=== PATIENT | female | born 1970 | race Caucasian/White ===

== ENCOUNTER 2025-01-09 10:45 | Emergency (ER) | payer MEDICARE, SELFPAY ==
[2025-01-09 10:47] VITALS: BP 146/87; PULSE 68; RESP 18; TEMP 36.5; O2SAT 99; BMI 27.1
--- NOTE | 2025-01-09 11:21 | EX.ED.DYSGE1 ---
HPI <MARIA Farrell - Last Filed: 01/09/25 15:19> History of Present Illness Chief Complaint: Edema Narrative Narrative: 54-year-old female states she had a sinus infection 1 month ago and completed an antibiotic. She still had some allergy type symptoms and nasal drainage. She woke up this morning with a painful swollen lump in front of her right ear and redness on her right cheek. No fever or chills. No eye pain or drainage. No sore throat or dental pain. PFSH <MARIA Farrell - Last Filed: 01/09/25 15:19> [facility] Medical History (Updated 01/09/25 @ 15:12 by MARIA Farrell) Overactive bladder Arthritis Fibromyalgia Pacemaker Arrhythmia HTN (hypertension) Home Medications ?Medication ?Instructions ?Recorded ?Last Taken ?Type amoxicillin 875 mg-potassium 1 tab PO BID 7 days #14 tabs 01/09/25 Unknown Rx clavulanate 125 mg tablet aspirin 81 mg tablet 81 mg PO DAILY 01/09/25 01/08/25 History carvedilol 6.25 mg tablet 6.25 mg PO DAILY 01/09/25 01/09/25 History cetirizine 10 mg capsule (All Day 10 mg PO DAILY 01/09/25 01/08/25 History Allergy (cetirizine)) famotidine 40 mg tablet 40 mg PO DAILY 01/09/25 01/09/25 History gabapentin 300 mg capsule 600 mg PO Q8H 01/09/25 01/09/25 History lisinopril 20 mg tablet 20 mg PO DAILY 01/09/25 01/09/25 History melatonin 10 mg capsule 10 mg PO QHS 01/09/25 01/08/25 History mirtazapine 30 mg tablet 30 mg PO QHS 01/09/25 01/08/25 History montelukast 10 mg tablet 10 mg PO DAILY 01/09/25 01/08/25 History multivitamin (Daily Multi-Vitamin 1 tab PO DAILY 01/09/25 01/09/25 History tablet) oxybutynin chloride 5 mg tablet 5 mg PO BID 01/09/25 01/09/25 History sertraline 100 mg tablet 150 mg PO DAILY 01/09/25 01/09/25 History topiramate 50 mg tablet 50 mg PO BID 01/09/25 01/09/25 History trazodone 50 mg tablet 50 mg PO QHS 01/09/25 01/08/25 History Allergy/AdvReac Type Severity Reaction Status Date / Time hydrochlorothiazide AdvReac Mild DIZZINESS Verified 01/09/25 10:47 Social History Smoking Status: Never smoker ROS <MARIA Farrell - Last Filed: 01/09/25 15:19> ROS ED ROS Narrative Constitutional: Negative for fever, chills, malaise. ENT: Positive for rhinorrhea. Respiratory: Negative for shortness of breath, cough. GI: Negative for nausea, vomiting. Neuro: Negative for headache. EXAM <MARIA Farrell - Last Filed: 01/09/25 15:19> Physical Exam Narrative Exam Narrative: CONST: Patient sitting in no acute distress. EYES: Normal inspection. ENT: Tender enlarged gland in front of right auricle. Right lateral nose medial cheek erythematous and warm. External ears appear normal, right partial cerumen impaction, bilaterally no TM redness or bulging. Normal nontender mastoids. Nares clear, normal posterior oropharynx. No dental pain or periapical abscess, sublingual space is soft. NECK: Normal inspection. Trachea midline, no masses or lymphadenopathy. RESP: No respiratory distress, CTAB. CVS: Regular rate and rhythm, no murmur, no gallop. SKIN: Clean dry and intact. EXTREMITIES: Normal appearance, no pedal edema. NEURO: Alert and answering questions appropriately. PSYCH: Normal affect. Const Vital Signs: 01/09/25 10:47 01/09/25 11:17 01/09/25 12:46 Temperature 97.7 F L Temperature Source Oral Pulse Rate 68 66 Respiratory Rate 18 16 Respiratory Effort Normal Non-Labored Respiratory Pattern Normal Blood Pressure 146/87 H 154/70 H Blood Pressure Mean 106 98 Pulse Ox 99 97 Oxygen Delivery Method Room Air Room Air 01/09/25 14:00 01/09/25 15:17 Temperature 97.7 F L Temperature Source Pulse Rate 59 L 61 Respiratory Rate 16 Respiratory Effort Respiratory Pattern Blood Pressure 169/75 H 151/60 H Blood Pressure Mean 106 90 Pulse Ox 96 98 Oxygen Delivery Method Room Air <Dr. Boris Haney DO - Last Filed: 01/09/25 15:47> Physical Exam Const Vital Signs: 01/09/25 10:47 01/09/25 11:17 01/09/25 12:46 Temperature 97.7 F L Temperature Source Oral Pulse Rate 68 66 Respiratory Rate 18 16 Respiratory Effort Normal Non-Labored Respiratory Pattern Normal Blood Pressure 146/87 H 154/70 H Blood Pressure Mean 106 98 Pulse Ox 99 97 Oxygen Delivery Method Room Air Room Air 01/09/25 14:00 01/09/25 15:17 Temperature 97.7 F L Temperature Source Pulse Rate 59 L 61 Respiratory Rate 16 Respiratory Effort Respiratory Pattern Blood Pressure 169/75 H 151/60 H Blood Pressure Mean 106 90 Pulse Ox 96 98 Oxygen Delivery Method Room Air MDM <MARIA Farrell - Last Filed: 01/09/25 15:19> [facility] Narrative Medical decision making narrative: Differential includes but not limited to parotitis, abscess, neoplasm Patient has erythema on the right cheek consistent with cellulitis and enlargement of the right parotid gland. Her mastoids and external and internal ears appear normal. No evidence of dental infection. CBC and BMP are normal. CT of the facial/sinuses shows enlargement of the right parotid with adjacent fat stranding consistent with parotitis. States some of the neoplastic process cannot be completely excluded. I will place the patient on Augmentin, recommended NSAIDs, and provided ENT follow-up. She was discharged in stable condition. Lab Data Attestation: I reviewed the patient's lab results. Labs: Laboratory Results - last 24 hr 01/09/25 11:34 WBC 6.8 RBC 4.33 Hgb 13.3 Hct 39.1 MCV 90.3 MCH 30.7 MCHC 34.0 RDW Std Deviation 42.2 RDW Coeff of Chen 12.7 Plt Count 226 MPV 9.5 Immature Gran % (Auto) 0.100 Neut % (Auto) 60.7 Lymph % (Auto) 24.7 Morgan % (Auto) 8.2 Eos % (Auto) 6.0 H Baso % (Auto) 0.3 Absolute Neuts (auto) 4.2 Absolute Lymphs (auto) 1.69 Nucleated RBC % 0 Sodium 141 Potassium 3.6 Chloride 107 Carbon Dioxide 23.1 Anion Gap 11 BUN 18 Creatinine 0.95 Estim Creat Clear Calc 63.27 Est GFR (MDRD) Non-Af 71 BUN/Creatinine Ratio 18.8 Glucose 99 Calcium 8.9 Radiography Diagnostic Testing: Clinical Impression(s) from Imaging Studies Facial/Sinus 01/09/25 11:26 IMPRESSION: Mild enlargement of the right parotid with mild adjacent fat stranding and internal soft tissue nodules possibly representing lymph nodes which may represent parotitis. Another neoplastic process can not be completely excluded. Borderline enlarged bilateral cervical lymph nodes. Mild thickening of the soft tissues of the external ear which may represent otitis externa. Correlate with physical exam. Reading Location: [id number] <Dr. Boris Haney, DO - Last Filed: 01/09/25 15:47> [facility] MDM Narrative Medical decision making narrative: Differential includes but not limited to parotitis, abscess, neoplasm Patient has erythema on the right cheek consistent with cellulitis and enlargement of the right parotid gland. Her mastoids and external and internal ears appear normal. No evidence of dental infection. CBC and BMP are normal. CT of the facial/sinuses shows enlargement of the right parotid with adjacent fat stranding consistent with parotitis. States some of the neoplastic process cannot be completely excluded. I will place the patient on Augmentin, recommended NSAIDs, and provided ENT follow-up. She was discharged in stable condition. Supervisory Physician Note Patient was seen and examined with the Advanced Practice Provider. Nursing notes and vital signs have been reviewed. Pertinent old records have been reviewed. I agree with the essential elements of the LIANA's history, physical exam, assessment, and plan. The differential diagnosis and management options were discussed with the LIANA. I participated in determining and agree with the management, procedures, final impression and disposition as documented. See changes noted by me. Please see addendum or separate note for any additional details. 54-year-old female presents for evaluation of sinus pressure with right sided facial swelling. Patient states she has been having issues with her sinuses and allergies. States approximately 1 month ago she was treated for a sinus infection. She states she has continued to have congestion with clear nasal drainage. Today she developed a painful lump in front of her right ear with redness/mild swelling of the right cheek. She denies any fever, chills, headache, vision changes, sinus pressure, ear or eye drainage, tinnitus, hearing loss, nausea, vomiting, sore throat, dental pain, chest pain, shortness of breath, cough. Eating and drinking well. No neck pain or difficulty swallowing. Denies any neurological deficit. Gen: A&O x3, NAD Head: Normocephalic, atraumatic Eyes: No sclera icterus, conjunctiva clear, PERRL, EOMI ENT: EACs and TMs clear BL, moist mucous membranes, posterior oropharynx unremarkable, uvula midline, tonsils not enlarged, no tonsillar exudates, no dental infection, no Chauncey angina/submandibular swelling, patient has mild erythema/swelling over right maxillary sinus-mild tenderness to palpation, tenderness/enlargement of the right parotid gland without erythema, no mastoiditis Neck: Trachea midline, No JVD, Full ROM, No meningismus, no lymphadenopathy CV: RRR, no murmurs Resp: Lungs CTA BL, no w/r/c Musc: Full ROM, no deformity Skin: Warm, dry Neuro: Alert, oriented, grossly intact, sensation intact Psych: Cooperative, appropriate mood and affect Differential diagnosis includes but is not limited to sinus infection, parotitis, cellulitis, facial abscess. On presentation, patient is no acute distress. Vitals are stable. She is afebrile. Toradol ordered for pain. Basic labs ordered with CT of the face. CBC without leukocytosis or anemia. BMP unremarkable. Patient had prolonged stay in the emergency department secondary to radiology not reading the CT imaging. We contacted radiology multiple times to have someone read the imaging. This was finally completed. CT shows mild enlargement of the right parotid with mild adjacent fat stranding and internal soft tissue nodules possibly representing lymph nodes which may represent parotitis. Another neoplastic process cannot be completely excluded. Borderline enlarged bilateral cervical lymph nodes. Mild thickening of the soft tissues of the external ear which may represent otitis externa. Physical exam does not correspond with otitis externa. On reevaluation, patient's pain has improved with Toradol. Patient will be placed on Augmentin for parotitis. Follow-up with ENT. Patient confirmed understand the plan. Patient stable to discharge home. Lab Data Labs: Laboratory Results - last 24 hr 01/09/25 11:34 WBC 6.8 RBC 4.33 Hgb 13.3 Hct 39.1 MCV 90.3 MCH 30.7 MCHC 34.0 RDW Std Deviation 42.2 RDW Coeff of Chen 12.7 Plt Count 226 MPV 9.5 Immature Gran % (Auto) 0.100 Neut % (Auto) 60.7 Lymph % (Auto) 24.7 Morgan % (Auto) 8.2 Eos % (Auto) 6.0 H Baso % (Auto) 0.3 Absolute Neuts (auto) 4.2 Absolute Lymphs (auto) 1.69 Nucleated RBC % 0 Sodium 141 Potassium 3.6 Chloride 107 Carbon Dioxide 23.1 Anion Gap 11 BUN 18 Creatinine 0.95 Estim Creat Clear Calc 63.27 Est GFR (MDRD) Non-Af 71 BUN/Creatinine Ratio 18.8 Glucose 99 Calcium 8.9 Radiography Diagnostic Testing: Clinical Impression(s) from Imaging Studies Facial/Sinus 01/09/25 11:26 IMPRESSION: Mild enlargement of the right parotid with mild adjacent fat stranding and internal soft tissue nodules possibly representing lymph nodes which may represent parotitis. Another neoplastic process can not be completely excluded. Borderline enlarged bilateral cervical lymph nodes. Mild thickening of the soft tissues of the external ear which may represent otitis externa. Correlate with physical exam. Reading Location: [place] [id number] Discharge Plan Triage Chief Complaint: Edema ED Midlevel Provider: Nathalia Logan ED Provider: Boris Haney Dx/Rx/DC Orders Clinical Impression: Acute parotitis, Cellulitis of face Instructions: ED Salivary Gland Infection Prescriptions: New amoxicillin-pot clavulanate 875-125 mg tablet 1 tab PO BID 7 Days Qty: 14 0RF No Action carvedilol 6.25 mg tablet 6.25 mg PO DAILY trazodone 50 mg tablet 50 mg PO QHS lisinopril 20 mg tablet 20 mg PO DAILY famotidine 40 mg tablet 40 mg PO DAILY sertraline 100 mg tablet 150 mg PO DAILY mirtazapine 30 mg tablet 30 mg PO QHS montelukast 10 mg tablet 10 mg PO DAILY oxybutynin chloride 5 mg tablet 5 mg PO BID topiramate 50 mg tablet 50 mg PO BID gabapentin 300 mg capsule 600 mg PO Q8H multivitamin [Daily Multi-Vitamin] Tablet 1 tab PO DAILY aspirin 81 mg tablet 81 mg PO DAILY All Day Allergy (cetirizine) 10 mg capsule 10 mg PO DAILY melatonin 10 mg capsule 10 mg PO QHS Primary Care Provider: Shasta Valero Referrals: Joseph Aguirre MD [Med Staff - Courtesy Staff] - Shasta Valero MD [Primary Care Provider] - Activity Restrictions/Additional Instructions: The CAT scan shows you have inflammation of the parotid gland which is called parotitis. This is one of the saliva glands. Please take the antibiotic, Tylenol and Motrin as needed for pain, and follow-up with the ENT. Print Language: Bangladeshi Disposition Disposition: Home, Self Care Discharge Date/Time: 01/09/25 15:21
--- NOTE | 2025-01-09 11:26 | CT_ITS ---
PROCEDURE: SINUS/FACIAL BONE WITH CONTRAS REASON FOR EXAM: MASS TECHNIQUE: CT of the paranasal sinuses with contrast. Coronal and Sagittal reconstruction series were provided. One or more dose reduction techniques were used (e.g., Automated exposure control, adjustment of the mA and/or kV according to patient size, use of iterative reconstruction technique). RADIATION DOSE SUMMARY: CTDlvol: 29.38 mGy DLP: 650.30 mGycm COMPARISON: None. FINDINGS: Frontal: Clear. Ethmoid: Clear. Sphenoid: Clear. Maxillary: Clear. Turbinates: Normal. Nasal Septum: Unremarkable. Mastoids/Middle Ears: No mastoid effusion. Mild enlargement of the right parotid with suggestive of mild fat stranding adjacent to the right parotid. Sijpy-nfdvyiy-zhwk-left internal soft tissue nodules which may represent lymph nodes. Mild thickening of the soft tissues of the right ear which may represent otitis externa. Borderline enlarged bilateral cervical lymph nodes. CT/Sinus/Facial Bone WITH Contras IMPRESSION: Mild enlargement of the right parotid with mild adjacent fat stranding and inte rnal soft tissue nodules possibly representing lymph nodes which may represent parotitis. Another neoplastic process can not be completely excluded. Borderline enlarged bilateral cervical lymph nodes. Mild thickening of the soft tissues of the external ear which may represent mile tis externa. Correlate with physical exam. Reading Location: [place] [id number]
[2025-01-09 11:41] LABS: Absolute Lymphocyte Count 1.69 X10^3/uL (0.83-4.51); Absolute Neutrophil Count 4.2 X10^3/uL (2.0-7.7); Basophil# 0.02 X10^3/uL; Basophil% 0.3 % (0-1); Eosinophil# 0.41 X10^3/uL; Hematocrit 39.1 % (37-47); Hemoglobin 13.3 g/dL (12.0-15.0); Lymphocyte # 1.69 X10^3/ul (0.83-4.51); Lymphocyte % 24.7 % (19-41); Mean Corpuscular Hgb 30.7 pg (27.0-32.0); Mean Corpuscular Volume 90.3 fL (81-99); Mean Platelet Vol. 9.5 fl (6.2-12.0); Monocyte# 0.56 X10^3/uL; Monocyte% 8.2 % (0-10); NRBC Flagged by Analyzer 0 % (0-5); Neutrophil # 4.15 X10^3/uL (2.7-7.7); Neutrophil % 60.7 % (47-70); Platelet Count 226 K/mm3 (150-450); RBC Distribution Width CV 12.7 % (11.6-14.6); RBC Distribution Width SD 42.2 fl (35.1-43.9); Red Blood Count 4.33 M/mm3 (4.2-5.4); White Blood Count 6.8 K/mm3 (4.4-11.0)
[2025-01-09] MEDS: Ketorolac 15 MG/ML Vial IV (11:48)
[2025-01-09 12:22] LABS: Anion Gap 11 (5-15); BUN 18 mg/dL (4-19); BUN/Creat Ratio 18.8 RATIO (10-20); Calcium,Total 8.9 mg/dL (7.6-11.0); Carbon Dioxide 23.1 mmol/L (21.0-32.0); Chloride 107 mmol/L (98-108); Creatinine, Serum 0.95 mg/dL (0.70-1.20); EST Glomerular Filtration Rate 71 (>60); Estimated Creatinine Clearance 63.27 ml/min (50-250); Glucose 99 mg/dL (70-99); Potassium 3.6 mmol/L (3.3-5.1); Sodium Level 141 mmol/L (133-145)
[2025-01-09 12:46] VITALS: BP 154/70; PULSE 66; RESP 16; O2SAT 97
--- NOTE | 2025-01-09 13:10 | ED.RN ---
RADIOLOGY CALLED FOR OUTSTANDING CT SCAN. RESPONSE, I WILL CALL THEM.
[2025-01-09 14:00] VITALS: BP 169/75; PULSE 59; O2SAT 96
[2025-01-09] MEDS: Amox/Clavulanate 875 MG Tablet PO (15:16)
[2025-01-09 15:17] VITALS: BP 151/60; PULSE 61; RESP 16; TEMP 36.5; O2SAT 98
== END 2025-01-09 15:21 | disposition home or self-care (01) ==
PROVIDERS: Physician Assistant; Emergency Provider Surgery; PCP Family Medicine; Visit Provider Surgery
DX: K11.21 Acute sialoadenitis (principal); L03.211 Cellulitis of face; I10 Essential (primary) hypertension; Z79.82 Long term (current) use of aspirin; Z79.899 Other long term (current) drug therapy
CPT/HCPCS: 70487; 80048; 85025; 96374; 99283; Q9967; A4216

== ENCOUNTER 2025-04-23 15:09 | Emergency (ER) | payer MEDICARE, MEDICAID, SELFPAY ==
[2025-04-23 15:10] VITALS: BP 184/106; PULSE 78; RESP 18; TEMP 36.9; O2SAT 99; BMI 27.4
--- NOTE | 2025-04-23 16:02 | EX.ED.DYSGE1 ---
HPI History of Present Illness Chief Complaint: Palpitations Informant: patient Onset/Context/Timing Onset: Days Context: Gradual Onset Timing: Intermittent Quality: Racing Location: Chest Worsened by: Stress Relieved by: Nothing Narrative Narrative: Patient presents with palpitations that have been intermittent over the past couple days. Patient states that come on gradually. Patient states it feels like her heart is racing. Patient states it is worse with stress. Patient does nothing to help with it. Patient denies any chest pain. Patient admits to some shortness of breath at times. Patient admits to some pain in her neck and back. Patient noted some weakness in her left lower face. 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 Patient states this has been stable. [facility] Medical History (Updated 04/23/25 @ 20:[address] Jerson Aguirre, DO) Overactive bladder Arthritis Fibromyalgia Pacemaker Arrhythmia HTN (hypertension) Home Medications ?Medication ?Instructions ?Recorded ?Last Taken ?Type amoxicillin 875 mg-potassium 1 tab PO BID 7 days #14 tabs 01/09/25 Unknown Rx clavulanate 125 mg tablet aspirin 81 mg tablet 81 mg PO DAILY 01/09/25 01/08/25 History carvedilol 6.25 mg tablet 6.25 mg PO DAILY 01/09/25 01/09/25 History cetirizine 10 mg capsule (All Day 10 mg PO DAILY 01/09/25 01/08/25 History Allergy (cetirizine)) famotidine 40 mg tablet 40 mg PO DAILY 01/09/25 01/09/25 History gabapentin 300 mg capsule 600 mg PO Q8H 01/09/25 01/09/25 History lisinopril 20 mg tablet 20 mg PO DAILY 01/09/25 01/09/25 History melatonin 10 mg capsule 10 mg PO QHS 01/09/25 01/08/25 History mirtazapine 30 mg tablet 30 mg PO QHS 01/09/25 01/08/25 History montelukast 10 mg tablet 10 mg PO DAILY 01/09/25 01/08/25 History multivitamin (Daily Multi-Vitamin 1 tab PO DAILY 01/09/25 01/09/25 History tablet) oxybutynin chloride 5 mg tablet 5 mg PO BID 01/09/25 01/09/25 History sertraline 100 mg tablet 150 mg PO DAILY 01/09/25 01/09/25 History topiramate 50 mg tablet 50 mg PO BID 01/09/25 01/09/25 History trazodone 50 mg tablet 50 mg PO QHS 01/09/25 01/08/25 History Allergy/AdvReac Type Severity Reaction Status Date / Time hydrochlorothiazide AdvReac Mild DIZZINESS Verified 04/23/25 15:10 Surgical History (Updated 04/23/25 @ 16:[address] Jerson Aguirre DO) History of permanent cardiac pacemaker placement History of throat surgery History of hysterectomy Hx of cholecystectomy Social History Smoking Status: Never smoker ROS ROS ED Constitutional Constitutional ED: Denies chills or fever(s) Eyes Eyes: Denies blurry vision or change in vision ENT ENT ED: Denies rhinorrhea or sore throat Cardiovascular Cardiovascular: Reports palpitations; Denies chest pain Respiratory/Chest Respiratory/Chest: Reports dyspnea; Denies cough Gastrointestinal Gastrointestinal: Denies nausea or vomiting Genitourinary Genitourinary ED: Denies dysuria or hematuria Musculoskeletal Musculoskeletal: Reports back pain and neck pain Integumentary Denies abscess or rash Neurologic Neurologic: Reports weakness; Denies headache(s) Allergic/Immunologic Allergic/Immunologic ED: Denies mouth swelling or urticaria EXAM Physical Exam Const Vital Signs: 04/23/25 15:10 04/23/25 15:28 04/23/25 17:10 Temperature 98.4 F Temperature Source Temporal Pulse Rate 78 70 Pulse Rate [Lying] Pulse Rate [Sitting (for 1 minute prior to obtaining)] Pulse Rate [Standing (for 1 minute prior to obtaining)] Respiratory Rate 18 18 Respiratory Effort Normal Non-Labored Blood Pressure 184/106 H 121/84 H Blood Pressure [Lying] Blood Pressure [Sitting (for 1 minute prior to obtaining)] Blood Pressure [Standing (for 1 minute prior to obtaining)] Blood Pressure Mean 132 96 Blood Pressure Mean [Lying] Blood Pressure Mean [Sitting (for 1 minute prior to obtaining)] Blood Pressure Mean [Standing (for 1 minute prior to obtaining)] Pulse Ox 99 99 Oxygen Delivery Method Room Air Room Air 04/23/25 19:06 Temperature Temperature Source Pulse Rate Pulse Rate [Lying] 68 Pulse Rate [Sitting (for 1 minute prior to obtaining)] 65 Pulse Rate [Standing (for 1 minute prior to obtaining)] 77 Respiratory Rate Respiratory Effort Blood Pressure Blood Pressure [Lying] 192/82 H Blood Pressure [Sitting (for 1 minute prior to obtaining)] 194/102 H Blood Pressure [Standing (for 1 minute prior to obtaining)] 183/93 H Blood Pressure Mean Blood Pressure Mean [Lying] 118 Blood Pressure Mean [Sitting (for 1 minute prior to obtaining)] 132 Blood Pressure Mean [Standing (for 1 minute prior to obtaining)] 123 Pulse Ox Oxygen Delivery Method Positive well nourished and well developed General Appearance ED: well developed and NAD HEENT Reports moist mucous membranes Neck supple and no JVD Resp normal respiratory effort and clear to auscultation bilaterally Cardio regular rate and regular rhythm GI non-tender and non-distended Palpation: soft Extremity normal to inspection General Extremety ED: Negative for edema or tenderness General Extremity: Negative for edema Neuro oriented x3, CN's II-XII intact bilaterally and no sensory deficits noted MDM MDM MDM Narrative Medical decision making narrative: Differential diagnosis includes cardiac dysrhythmia, cardiac ischemia, pneumonia, bronchitis, electrolyte abnormality, and anxiety. EKG will be obtained to assess for cardiac dysrhythmia and cardiac ischemia. Chest x-ray will be obtained to assess for pneumonia and bronchitis. Basic metabolic profile will be obtained to assess for electrolyte abnormality and renal function. CBC will be obtained to assess for leukocytosis and anemia. Urinalysis will be obtained to assess for urinary tract infection and hematuria. High-sensitivity troponin will be obtained to assess for cardiac ischemia. Lab Data Attestation: I reviewed the patient's lab results. Lab results narrative: CBC was reviewed and was within normal limits. Basic metabolic profile was reviewed and was within normal limits. Initial high-sensitivity troponin was repeated and was normal at 7. 2-hour repeat high-sensitivity troponin was reviewed and was normal at 9. Urinalysis was reviewed. There is no evidence of urinary tract infection or hematuria. Labs: Laboratory Results - last 24 hr 04/23/25 04/23/25 04/23/25 16:55 17:30 19:00 WBC 6.2 RBC 4.12 L Hgb 12.4 Hct 35.9 L MCV 87.1 MCH 30.1 MCHC 34.5 RDW Std Deviation 38.5 RDW Coeff of Chen 12.1 Plt Count 252 MPV 9.4 Immature Gran % (Auto) 0.300 Neut % (Auto) 50.6 Lymph % (Auto) 36.9 Boyd % (Auto) 9.0 Eos % (Auto) 2.9 Baso % (Auto) 0.3 Absolute Neuts (auto) 3.2 Absolute Lymphs (auto) 2.30 Nucleated RBC % 0 Sodium 142 Potassium 3.4 Chloride 107 Carbon Dioxide 21.4 Anion Gap 13 BUN 21 H Creatinine 0.82 Estim Creat Clear Calc 73.72 Est GFR (MDRD) Non-Af 85 BUN/Creatinine Ratio 25.3 H Glucose 98 Calcium 9.1 Troponin T High Sens 7 Troponin T Hi Sens 2 Hr 9 Urine Color Yellow Urine Clarity Sl. Cloudy Urine pH 5.0 Ur Specific Randolph 1.025 Urine Protein 30 H Urine Glucose (UA) Normal Urine Ketones Negative Urine Occult Blood Negative Urine Nitrite Negative Urine Bilirubin Negative Urine Urobilinogen Normal Ur Leukocyte Esterase Negative Urine RBC 0-5 SEEN Urine WBC 0-5 SEEN Ur Squamous Epith Cells 0-5 SEEN Urine Bacteria RARE Hyaline Casts 0-5 SEEN Urine Mucus 0 SEEN Radiography Chest X-Ray - ED: 2 View, Read by ED Physician, Read by Radiologist and No Acute Disease Diagnostic Testing: Clinical Impression(s) from Imaging Studies Chest X-Ray 04/23/25 17:30 IMPRESSION: No evidence of acute cardiopulmonary disease. Reading Location: [facility] and lateral chest x-ray was obtained. There are 2 views. On my independent interpretation, lung shah are clear. There is normal cardiac silhouette. Bony thorax is normal. There is no acute process noted. Radiologist also interpreted the x-ray and agrees. EKG Initial EKG: Attestation: I personally reviewed and interpreted this EKG as follows: Interpretation: Sinus Rhythm (66) and Non-Specific ST Changes Comments: EKG was obtained. On my independent interpretation, it showed a normal sinus rhythm with a rate of 66. IL interval, QRS interval, and QTc intervals were all normal. Gaylord was normal. There are nonspecific ST-T wave changes. Prior EKG tracings: not available for review Prior: No Prior Treatment and Re-Evaluation :: Patient was given IV fluids and aspirin. Orthostatic vital signs were obtained and were limits. Patient was advised of her findings. Patient was instructed to follow-up with her primary care physician in 5 to 7 days. Patient was instructed to return if worse in any way. Patient understood and was agreeable with the plan. All questions were answered. Discharge Plan Triage Chief Complaint: Palpitations ED Provider: Jerson Aguirre Dx/Rx/DC Orders Clinical Impression: Heart palpitations, Elevated blood pressure reading Instructions: ED Heart Palpitations Prescriptions: No Action carvedilol 6.25 mg tablet 6.25 mg PO DAILY trazodone 50 mg tablet 50 mg PO QHS lisinopril 20 mg tablet 20 mg PO DAILY famotidine 40 mg tablet 40 mg PO DAILY sertraline 100 mg tablet 150 mg PO DAILY mirtazapine 30 mg tablet 30 mg PO QHS montelukast 10 mg tablet 10 mg PO DAILY oxybutynin chloride 5 mg tablet 5 mg PO BID topiramate 50 mg tablet 50 mg PO BID gabapentin 300 mg capsule 600 mg PO Q8H multivitamin [Daily Multi-Vitamin] Tablet 1 tab PO DAILY aspirin 81 mg tablet 81 mg PO DAILY All Day Allergy (cetirizine) 10 mg capsule 10 mg PO DAILY melatonin 10 mg capsule 10 mg PO QHS amoxicillin-pot clavulanate 875-125 mg tablet 1 tab PO BID 7 Days Qty: 14 0RF Primary Care Provider: Shasta Valero Referrals: Shasta Valero MD [Primary Care Provider] - 3-5 Days Print Language: Mexican Disposition Disposition: Home, Self Care
--- NOTE | 2025-04-23 16:20 | EKG12_ITS ---
Test Reason : PALPITATIONS Blood Pressure : */* mmHG Vent. Rate : 66 BPM Atrial Rate : 66 BPM P-R Int : 188 ms QRS Dur : 100 ms QT Int : 444 ms P-R-T Axes : 59 44 24 degrees QTcB Int : 465 ms Normal sinus rhythm minor Nonspecific ST abnormality Abnormal ECG Confirmed by Anselmo Medina ([id number]), commercial production editor TANGELA SMYTH ([id number]) on 04/26/2025 1:11:39 PM Referred By: Confirmed By: Anselmo Medina
[2025-04-23 17:07] LABS: Hematocrit 35.9 % (37-47); Hemoglobin 12.4 g/dL (12.0-15.0); Immature Granulocytes Count 0.020 X10^3/uL (0.0-0.0); Mean Corp Hgb Conc 34.5 g/dL (32-36); Mean Corpuscular Volume 87.1 fL (81-99); Mean Platelet Vol. 9.4 fl (6.2-12.0); NRBC Flagged by Analyzer 0 % (0-5); Platelet Count 252 K/mm3 (150-450); RBC Distribution Width CV 12.1 % (11.6-14.6); RBC Distribution Width SD 38.5 fl (35.1-43.9); Red Blood Count 4.12 M/mm3 (4.2-5.4); White Blood Count 6.2 K/mm3 (4.4-11.0)
[2025-04-23 17:10] VITALS: BP 121/84; PULSE 70; RESP 18; O2SAT 99
[2025-04-23 17:22] LABS: Anion Gap 13 (5-15); BUN 21 mg/dL (4-19); BUN/Creat Ratio 25.3 RATIO (10-20); Calcium,Total 9.1 mg/dL (7.6-11.0); Carbon Dioxide 21.4 mmol/L (21.0-32.0); Chloride 107 mmol/L (98-108); Estimated Creatinine Clearance 73.72 ml/min (50-250); Glucose 98 mg/dL (70-99); Potassium 3.4 mmol/L (3.3-5.1)
[2025-04-23] MEDS: 0.9% Normal Saline (1000mL) 1,000 ML 1000 ML IV (17:23)
--- NOTE | 2025-04-23 17:30 | RAD_ITS ---
PROCEDURE: CHEST PA AND LATERAL 04/23/2025 REASON FOR EXAM: PALPITATIONS TECHNIQUE: Procedure Code: RADCXR Modality: DX Procedure: CHEST PA AND LATERAL COMPARISON: None. FINDINGS: Devices: Left chest wall dual lead ICD in appropriate positioning. Lungs/Pleura: Clear. No pneumothorax or pleural effusion. Heart/Mediastinum: Normal in size. No significant vascular congestion. Bones/Soft tissues: No significant abnormality. RAD/Chest PA and Lateral IMPRESSION: No evidence of acute cardiopulmonary disease. Reading Location: [facility]
[2025-04-23 17:37] LABS: Mucous, Urine 0 SEEN /hpf (<or=2+)
[2025-04-23 17:47] LABS: Troponin T High Sensitivity 7 ng/L (<=14)
[2025-04-23 18:05] LABS: Color, Urine Yellow (Yellow); Glucose, Dipstick Normal (Normal); Ketone-Dipstick Negative (Negative); Leukocyte Esterase-Dipstick Negative /ul (Negative); Nitrite-Dipstick Negative (Negative); Occult Blood-Urine Negative /ul (Negative); Protein-Dipstick 30 mg/dl (Negative); Specific Gravity, Urine 1.025 (1.002-1.030); Urine Bilirubin Dipstick Negative (Negative)
[2025-04-23 19:06] VITALS: BP 183/93; BP 192/82; BP 194/102; PULSE 65; PULSE 68; PULSE 77
[2025-04-23 19:24] LABS: Red Blood Cells-Urine 0-5 SEEN /hpf (0-5); Squamous Epithelial Cells - UA 0-5 SEEN /hpf (5-10)
[2025-04-23 19:38] LABS: Troponin T High Sens 2 HR 9 ng/L (<=14)
[2025-04-23 21:00] VITALS: BP 186/72; PULSE 88; RESP 15; O2SAT 98
[2025-04-23 21:14] VITALS: BP 186/72; PULSE 88; RESP 15; TEMP 36.9; O2SAT 98
== END 2025-04-23 21:16 | disposition home or self-care (01) ==
PROVIDERS: Emergency Provider Emergency Medicine; PCP Family Medicine; Visit Provider Emergency Medicine
DX: R00.2 Palpitations (principal); I69.354 Hemiplegia and hemiparesis following cerebral infarction affecting left non-dominant side; R06.02 Shortness of breath; I10 Essential (primary) hypertension
CPT/HCPCS: 71046; 80048; 81001; 84484; 85025; 93005; 96360; 96361; 99285; A4216